=== PATIENT | female | born 1965 | race Caucasian/White ===

== ENCOUNTER 2017-03-08 16:02 | Emergency (ER) | payer MEDICAID ==
[~2017-03-08] VITALS: Ht 172.7 cm; Wt 70.3 kg
[~2017-03-08 16:02] MED LIST: ANTIVERT25 MG PO; CAMBIA50 MG; CAMBIA50 MG PO; HYDROCODON-ACE1 EAC7 PO; HYDROCODONE-AP1 EAC6 PO; HYDROCODONE-APA1 TA1 PO; IBUPROFEN 600600 M1 PO; LIORESAL 10 MG10 MG PO; MEDROL DOSPAK21 TA1 PO; MEDROLDOSEPACK PO; MELOXICAM7.5 MG PO; NEURONTIN 300300 M1 PO; NORCO 5-325 TA1 EAC1 PO; NORCO 5-325 TA1 EACH PO; PRINIVIL10 MG PO; PROAIR HFA8.5 GM INH; ROBAXIN 750 MG750 M1 PO; SPIRIVA RESPIMAT4 G1 IH; STEROID PACK; SYMBICORT160 MCG/4. INH
[2017-03-08 16:38] LABS: URINE BILIRUBIN NEGATIVE (Negative); URINE BLOOD NEGATIVE (Negative); URINE CLARITY CLEAR; URINE COLOR YELLOW; URINE GLUCOSE-RANDOM NEGATIVE (Negative); URINE KETONES NEGATIVE (Negative); URINE LEUKOCYTES-REFLEX NEGATIVE (Negative); URINE NITRITE-REFLEX NEGATIVE (Negative); URINE PROTEIN NEGATIVE (Negative); URINE UROBILINOGEN 0.2 E.U./dl (0.2-1.0)
[2017-03-08 17:00] LABS: ABSOLUTE EOSINOPHILS 0.1 thou/uL (0.0-0.7); ABSOLUTE LYMPHOCYTES 1.4 thou/uL (0.8-5.3); ABSOLUTE MONOCYTES 0.3 thou/uL (0.0-1.2); ABSOLUTE NEUTROPHILS 4.5 thou/uL (1.6-8.1); BASOPHILS 0.5 %; EOSINOPHILS 1.6 %; HEMATOCRIT 41.4 % (37.0-47.0); HEMOGLOBIN 13.7 gm/dL (12.0-15.0); LYMPHOCYTES 22.1 %; MCH 30.9 pg (26.0-34.0); MCHC 33.1 g/dL (28.0-37.0); MCV 93.5 fL (80.0-100.0); MONOCYTES 4.6 %; MPV 7.6 fl. (7.2-11.1); NUCLEATED RBCS 0 /100WBC; PLATELET COUNT* 250 thou/uL (150-400); POLYS 71.2 %; RBC 4.43 mil/uL (4.20-5.00); RDW-CV 14.8 % (10.5-14.5); WBC 6.3 thou/uL (4.0-11.0)
[2017-03-08 17:08] LABS: ANION GAP 7 mmol/L (7-16); BUN 5 mg/dL (7-18); CALCIUM 8.8 mg/dL (8.5-10.1); CHLORIDE 105 mmol/L (98-107); CO2 28 mmol/L (21-32); CREATININE 0.7 mg/dL (0.6-1.3); GLUCOSE 104 mg/dL (70-99); POTASSIUM 3.6 mmol/L (3.5-5.1); SODIUM 140 mmol/L (136-145)
[2017-03-08 17:15] LABS: ALBUMIN 3.2 g/dL (3.4-5.0); ALKALINE PHOSPHATASE 104 U/L (46-116); LIPASE 180 U/L (73-393); SGOT 11 U/L (15-37); SGPT 17 U/L (30-65); TOTAL BILIRUBIN 0.3 mg/dL (<0.1-1.0); TROPONIN-I LEVEL <0.06 ng/mL (<0.06)
[2017-03-08] MEDS ORDERED: PEPCID20 MG PO (18:45)
[2017-03-08] MEDS ORDERED: OMEPRAZOLE 20 M20 M1 PO (18:45)
[2017-03-08] MEDS ORDERED: HYDROCODONE-AP1 EAC6 PO (18:46)
[2017-03-08] MEDS ORDERED: ZOFRAN ODT4 MG PO (18:50)
[2017-03-08 19:07] VITALS: BP 176/101
--- NOTE | 2017-03-09 15:32 | EKG ---
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: Iraida DE GUZMAN : 1965 Requested By: Brunilda Olea Order Number: [id number] MD: Jorge Jean Measurements Intervals [place] Rate: 86 P: 16 MT: 164 QRS: -23 QRSD: 93 T: 76 QT: 357 QTc: 427 Interpretive Statements Sinus rhythm Inferior infarct, old Compared to ECG 12/09/2016 14:54:37 No significant changes Electronically Signed On 03-09-2017 15:32:26 ROOFING SUPERVISOR by Jorge Jean [email or web address] <ELECTRONICALLY SIGNED> By: Jorge Jean MD, [facility] 03/09/17 1532 [facility] 1640 Jorge Jean MD, FACC /EPI
[2017-06-30] MEDS ORDERED: PERCOCET PO (16:18)
== END 2017-03-08 19:08 | disposition home or self-care (01) ==
LOC: M.ERS 16:02
PROVIDERS: Physician Assistant
DX: K29.00 Acute gastritis without bleeding (principal); I10 Essential (primary) hypertension; J44.9 Chronic obstructive pulmonary disease, unspecified; G43.909 Migraine, unspecified, not intractable, without status migrainosus; F17.210 Nicotine dependence, cigarettes, uncomplicated; Z90.49 Acquired absence of other specified parts of digestive tract; Z90.710 Acquired absence of both cervix and uterus; Z88.1 Allergy status to other antibiotic agents; Z88.0 Allergy status to penicillin; Z88.2 Allergy status to sulfonamides; Z88.8 Allergy status to other drugs, medicaments and biological substances

== ENCOUNTER → 2017-06-30 | Day surgery (SDC) | payer MEDICAID ==
[~2017-06-30] MED LIST changes: +OMEPRAZOLE 20 M20 M1 PO; +PEPCID20 MG PO; +PERCOCET PO; +PRINIVIL20 MG PO; +ZOFRAN ODT4 MG PO
[2017-06-30 13:25] LABS: HEMATOCRIT 42.2 % (37.0-47.0); HEMOGLOBIN 13.9 gm/dL (12.0-15.0); MCH 29.9 pg (26.0-34.0); MCHC 32.8 g/dL (28.0-37.0); MCV 91.1 fL (80.0-100.0); MPV 7.9 fl. (7.2-11.1); RBC 4.63 mil/uL (4.20-5.00); RDW-CV 15.9 % (10.5-14.5); WBC 5.8 thou/uL (4.0-11.0)
[2017-06-30 13:35] LABS: CALCIUM 9.3 mg/dL (8.5-10.1); CREATININE 0.8 mg/dL (0.6-1.3); POTASSIUM 4.4 mmol/L (3.5-5.1)
--- NOTE | 2017-06-30 16:41 | EKG ---
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: : 1965 Requested By: Sid Workman Order Number: [id number] Maribel MD: Jorge Jean Measurements Intervals [place] Rate: 76 P: 46 MN: 149 QRS: -35 QRSD: 89 T: 75 QT: 412 QTc: 464 Interpretive Statements Sinus rhythm Inferior infarct, old Baseline wander in lead(s) II,III,aVF Compared to ECG 03/08/2017 16:40:40 Voltage is more prominent Electronically Signed On 06-30-2017 16:41:16 CDT by Jorge Jean [email or web address] <ELECTRONICALLY SIGNED> By: Jorge Jean MD, [facility] 06/30/17 1641 1308 1308 Jorge Jean MD, [facility] /EPI
--- NOTE | 2017-07-06 10:50 | OP ---
[address] [address] OPERATIVE REPORT Name: JORDY LEONARD Room: [facility]#: [id number] Admission: 06/30/17 Attend Phys: Sid Workman II Discharge: Date of : 63 Report #: [id number] THIS REPORT FOR: //name// CC: José Luis Workman DATE OF SERVICE: 06/30/2017 PREOPERATIVE DIAGNOSIS: Left shoulder rotator cuff tear. POSTOPERATIVE DIAGNOSES: 1. Left shoulder rotator cuff tear. 2. Lateral clavicle osteoarthritis. 3. Bony cartilage debris with labrum tears, glenohumeral joint. 4. Subacromial impingement. PROCEDURES PERFORMED: 1. Left shoulder arthroscopic surgery with rotator cuff repair. 2. Arthroscopic lateral clavicle excision with arthroscopic extensive debridement of glenohumeral joint, bony cartilage debris and labral tears and a subacromial decompression. SURGEON: Sid Workman II, DO. PLANETARIUM SKY SHOW TECHNICIAN: BIANKA Adkins. ANESTHESIA: Per operative record. ESTIMATED BLOOD LOSS: Minimal. ANTIBIOTICS: Per operative record. DRAINS: None. COMPLICATIONS: None. CONDITION: Stable to recovery room. DESCRIPTION OF PROCEDURE: The patient was taken to the operative suite and placed supine on the operative table, given appropriate anesthesia, the patient's left lower extremity was prepped and draped. Surgery began by posterior portal incision. The arthroscope was advanced in the joint. There was found to be labral tear as well as fraying of the biceps tendon and bone incarcerated in the glenohumeral joint. Utilizing a shaver, an extensive debridement performed of the superior and inferior aspect of glenohumeral joint as well as anterior and posterior. Labral tears were also resected as well as [facility] [address] [place] [address] OPERATIVE REPORT Name: JORDY LEONARD Room: [facility]#: [id number] Admission: 06/30/17 Attend Phys: Sid Workman II Discharge: Date of : 63 Report #: [id number] loose bony cartilage debris. There was found to be approximately 8 mm rotator cuff tear noted to the lateral margin of the supraspinatus. This was debrided along the undersurface utilizing a shaver, down to fresh tissue. The arthroscope was advanced in the subacromial space and subacromial decompression with was performed. An additional centimeter of lateral clavicle was then excised using shaver, an additional centimeter of clavicle. The rotator cuff tear was then roughened along the superior margin and a bone bed was prepared down the bleeding tissue. Two sutures were then placed through the rotator cuff tear. This was then anchored to the lateral humerus in appropriate fashion. It was probed and found to be intact with excellent repair of the rotator cuff tear. Final irrigation of shoulder was then performed. Excess fluid was then drained. Suture was then closed with 4-0 nylon in simple fashion. Dermabond and sterile dressing was applied. The patient transported to recovery room in stable condition. Sling was applied. Counts were correct at the end of the procedure. <ELECTRONICALLY SIGNED> By: Sid Workman II, DO 07/06/17 1050 1241 1330Sid Workman II, DO /nt
== END | disposition home or self-care (01) ==
LOC: M.SUR 12:33
PROVIDERS: Orthopaedic Surgery
DX: M75.102 Unspecified rotator cuff tear or rupture of left shoulder, not specified as traumatic (principal); M19.012 Primary osteoarthritis, left shoulder; M24.112 Other articular cartilage disorders, left shoulder; S43.492A Other sprain of left shoulder joint, initial encounter; M75.42 Impingement syndrome of left shoulder; Z88.0 Allergy status to penicillin; Z88.2 Allergy status to sulfonamides; Z88.8 Allergy status to other drugs, medicaments and biological substances; Z79.891 Long term (current) use of opiate analgesic; Z79.899 Other long term (current) drug therapy; Z98.890 Other specified postprocedural states; X58.XXXA Exposure to other specified factors, initial encounter; Y93.89 Activity, other specified; Y92.89 Other specified places as the place of occurrence of the external cause; Y99.8 Other external cause status

== ENCOUNTER 2017-07-26 14:08 | Emergency (ER) | payer MEDICAID ==
[~2017-07-26] VITALS: Ht 170.2 cm; Wt 72.6 kg
[~2017-07-26 14:08] MED LIST changes: -PRINIVIL20 MG PO
[2017-07-26] MEDS ORDERED: PRINIVIL20 MG PO (14:56)
[2017-07-26 15:09] VITALS: BP 157/97
== END 2017-07-26 15:10 | disposition home or self-care (01) ==
LOC: M.ERS 14:08
DX: I10 Essential (primary) hypertension (principal); Z91.14 Patient's other noncompliance with medication regimen; J44.9 Chronic obstructive pulmonary disease, unspecified; G43.909 Migraine, unspecified, not intractable, without status migrainosus; M79.7 Fibromyalgia; F17.210 Nicotine dependence, cigarettes, uncomplicated; Z90.49 Acquired absence of other specified parts of digestive tract; Z90.710 Acquired absence of both cervix and uterus; Z88.1 Allergy status to other antibiotic agents; Z88.0 Allergy status to penicillin; Z88.8 Allergy status to other drugs, medicaments and biological substances

== ENCOUNTER → 2017-09-15 | Outpatient (CLI) | payer MEDICAID ==
[~2017-09-15] MED LIST changes: +PRINIVIL20 MG PO
[2017-09-15 10:29] LABS: ABSOLUTE EOSINOPHILS 0.2 thou/uL (0.0-0.7); ABSOLUTE LYMPHOCYTES 1.3 thou/uL (0.8-5.3); ABSOLUTE MONOCYTES 0.4 thou/uL (0.0-1.2); BASOPHILS 0.8 %; EOSINOPHILS 3.2 %; HEMATOCRIT 40.6 % (37.0-47.0); HEMOGLOBIN 13.4 gm/dL (12.0-15.0); MCH 29.9 pg (26.0-34.0); MCV 90.5 fL (80.0-100.0); MONOCYTES 6.2 %; MPV 7.6 fl. (7.2-11.1); NUCLEATED RBCS 0 /100WBC; PLATELET COUNT* 222 thou/uL (150-400); POLYS 67.8 %; RBC 4.48 mil/uL (4.20-5.00); RDW-CV 17.6 % (10.5-14.5); WBC 5.9 thou/uL (4.0-11.0)
[2017-09-15 10:46] LABS: ALBUMIN 2.8 g/dL (3.4-5.0); CALCIUM 9.2 mg/dL (8.5-10.1); CREATININE 0.7 mg/dL (0.6-1.3); POTASSIUM 3.7 mmol/L (3.5-5.1); TOTAL BILIRUBIN 0.3 mg/dL (<0.1-1.0); TOTAL PROTEIN 6.7 g/dL (6.4-8.2)
[2017-09-15 11:37] LABS: ESR (SEDRATE) 33 mm/hr (0-30)
== END ==
LOC: M.LAB 10:06
PROVIDERS: Internal Medicine Gastroenterology
DX: R10.9 Unspecified abdominal pain (principal); R63.4 Abnormal weight loss

== ENCOUNTER → 2017-09-20 | Outpatient (CLI) | payer MEDICAID | LOC: M.LAB 07:30 → M.NUC 12:00 | DX: R10.9 Unspecified abdominal pain (principal); R11.2 Nausea with vomiting, unspecified; R63.4 Abnormal weight loss ==

== ENCOUNTER → 2017-09-22 | Outpatient (CLI) | payer MEDICAID | LOC: M.CT 06:44 | DX: K57.30 Diverticulosis of large intestine without perforation or abscess without bleeding (principal); Z90.49 Acquired absence of other specified parts of digestive tract; I10 Essential (primary) hypertension ==

== ENCOUNTER 2018-07-06 23:23 | Emergency (ER) | payer MEDICAID ==
[~2018-07-06] VITALS: Ht 172.7 cm; Wt 65.8 kg
[2018-07-06] MEDS ORDERED: LISINOPRIL40 MG PO (23:39)
[2018-07-06] MEDS ORDERED: PRILOSEC 20 MG20 MG PO (23:39)
[2018-07-07] MEDS ORDERED: NORCO 7.5-3251 EACH PO (00:44)
[2018-07-07 00:53] VITALS: BP 145/79
== END 2018-07-07 00:57 | disposition home or self-care (01) ==
LOC: M.ERS 23:23
DX: S83.8X2A Sprain of other specified parts of left knee, initial encounter (principal); S63.591A Other specified sprain of right wrist, initial encounter; S70.02XA Contusion of left hip, initial encounter; S50.01XA Contusion of right elbow, initial encounter; I10 Essential (primary) hypertension; J44.9 Chronic obstructive pulmonary disease, unspecified; G43.909 Migraine, unspecified, not intractable, without status migrainosus; M79.7 Fibromyalgia; F17.210 Nicotine dependence, cigarettes, uncomplicated; Z90.49 Acquired absence of other specified parts of digestive tract; Z98.890 Other specified postprocedural states; Z90.710 Acquired absence of both cervix and uterus; Z88.0 Allergy status to penicillin; Z88.1 Allergy status to other antibiotic agents; Z88.2 Allergy status to sulfonamides; Z88.8 Allergy status to other drugs, medicaments and biological substances; W18.39XA Other fall on same level, initial encounter; Y93.89 Activity, other specified; Y92.89 Other specified places as the place of occurrence of the external cause; Y99.8 Other external cause status